=== PATIENT | female | born 1985 | race Caucasian/White ===

== ENCOUNTER 2023-07-27 18:55 | Emergency (ER) | payer OTHER, SELFPAY ==
[2023-07-27 18:59] VITALS: BP 148/100
--- NOTE | 2023-07-27 19:44 | ED.GENMED ---
History of Present Illness
General
Chief Complaint: Abdominal Pain
Source: patient
Exam Limitations: none
Time Seen by Provider: 07/27/23 19:28
Travel History
Have you had any contact with someone who has COVID-19?: No
Do you have any symptoms of coronavirus? Fever > 100 degrees, chills, cough, shortness of breath, sore throat, loss of taste or smell, muscle aches, or headache?: No
History of Present Illness
History of Present Illness:
This is a 38 year old female that comes in with c/o feeling sick. States that her whole abd hurts and she was lightheaded today. States that she had her period last week and today she started to have some spotting and an odor and she found a Tampon
that was still in. States that she took this out. States that she felt nauseated, fatigued and lightheaded. States that her abd felt bloated and she had upper abd discomfort. States that she has been hot and cold, nauseated, had diarrhea which is
normal for her. Denies any fever, vomiting, headache, urinary burning.
Past History
Past History
ED Past Medical History: Asthma, Psychiatric (Anxiety, Depression) and Other (Lumbar disc disease, IBS< Eczema, )
ED Past Surgical History: (X 2), Gynecological (Circlage, Myomectomy) and Orthopedic (Laminectomy)
Social History
Tobacco: Smoker
Alcohol: Occasional
Personal: Other (Seperated)
Living: with family
Employment: Employed
Family History
Family History: Other (Noncontributory)
Review of Systems
Review of Systems
All Other Systems: ROS reviewed and negative except as documented in HPI and ROS
Constitutional: Reports other ([place] hot and cold)
EENT: Reports no symptoms
Respiratory: Denies cough or trouble breathing
Cardiac: Reports chest pain
ABD/GI: Reports abdominal pain, nausea and diarrhea; Denies vomiting
: Reports other (Found tampon that was left in from last week)
Musculoskeletal: Reports no symptoms
Skin: Reports no symptoms
Neurological: Reports other (lightheaded); Denies dizzy or headache
Psychiatric: Reports no symptoms
Phy Exam
General Physical Exam
General Presentation: no apparent distress
General age: appears stated age
General Skin: warm and dry
General Habitus: normal
General Mental: alert and anxious
General Hydration: appears well hydrated
ENT Exam
ENT Exam: TM's normal, pharynx normal and neck supple
Eye Exam
Eye Exam: EOMI
Cardiovascular Exam
Cardiovascular Exam: regular rate/rhythm, no edema, no murmur and normal peripheral pulses
Pulmonary Exam
Pulmonary Exam: lungs clear, no respiratory distress, no rales, chest non tender, no crackles, no rhonchi, no wheezing and no cough
Gastrointestinal Exam
Gastrointestinal Exam: normal bowel sounds, soft, no organomegaly, no pulsatile mass, non distended and tender (Upper abd tenderness with palpation)
Musculoskeletal Exam
Musculoskeletal Exam: full ROM and no edema
Skin Exam
Skin Exam: normal color, warm/dry, no rash and no petechia
Psychiatric Exam
Psychiatric Exam: normal mood/affect
Course
Orders/Labs/Results
Orders:
Orders
07/27/23 19:43
Electrocardiogram (*1) Urgent
Reason for Study: Chest Pain
CT Abd/pel W Iv And Oral Contr Urgent
Comment:
Reason For Exam: Generalized upper abd discomfort.
EKG- Treatment ONCE
0.9% Sodium Chloride 1000 ml [Nss] 1,000 ml IV BOLUS
Iohexol [Omnipaque] See Protocol PO NOW STA
Pantoprazole [Protonix IV] 40 mg IV NOW STA
07/27/23 19:53
Ketorolac [Toradol] 30 mg IV NOW STA
07/27/23 20:12
Complete Blood Count/With Diff Urgent
Comprehensive Metabolic Panel Urgent
HCG, Serum Qualitative Screen Urgent
Comment: ADD ON
Lactate Level [Lactic Acid] Urgent
Troponin I Urgent
Urinalysis Reflex To Culture Urgent
Date Specimen was Collected: 07/27/23
Time Specimen was Collected: 19:55
07/27/23 20:28
Add On- LAB Urgent
Tests Added?: hcg qualitative
07/27/23 21:39
Acetaminophen [Tylenol] 1,000 mg PO NOW STA
Abnormal Lab Results
07/27/23
20:12
RBC 3.99 L 10^6/uL
(4.20-5.40)
Hct 35.8 L %
(37.0-47.0)
MCH 32.3 H pg
(27.0-31.0)
MPV 10.5 H fL
(7.4-10.4)
Glucose 116 H mg/dl
(70-99)
07/27/23 20:12
07/27/23 20:12
Vital Signs
Initial and Last Documented VS:
Initial Vital Signs
Temp Pulse Resp BP Pulse Ox
99.8 F 70 22 148/100 100
07/27/23 18:59 07/27/23 18:59 07/27/23 18:59 07/27/23 18:59 07/27/23 18:59
Last Documented Vital Signs
Temp Pulse Resp BP Pulse Ox
97.8 F 59 18 129/84 98
07/27/23 23:05 07/27/23 23:05 07/27/23 23:05 07/27/23 23:05 07/27/23 23:05
MDM/Problems Addressed
Differential Diagnosis Includes:
Gastritis, Colitis,
MDM/Problems Addressed:
This is a 38 year old female that comes in with c/o just not feeling good. States that she found a tampon that she had left in from last week. States that her whole abd hurts and that she has been hot and cold, nausea, fatigue, lightheaded.
Will get labs, CT abd, IV fluids and pain medication.
Back into see patient. Explained that her blood work is normal along with her Urine. However, the CT shows that she has a retained Tampon. Pelvic exam done and Tampon removed. Will place patient on Doxycycline and discharge home. Patient to follow
up with the PCP and her REFLESHER. Return with fever or any other concerns.
Chronic conditions affecting care:
Colitis, IBS
Acute Exacerbation and/or Progression of Chronic Illness:
Colitis, IBS
*Radiology
Radiology exam reviewed: radiology read reviewed (CT night hawk- No acute findings. No bowel obstruction or inflammation. Normal appendix. Unremarkable gallbladder, pancreas, and kidneys. Normal-sized ovaries. Trace pelvic free fluid, likely
physiologic. No free air or abscess. Tampon within the vagina. Hepatomegaly measuring 19.8cm cranial-caudal ) and other (CT cont- Small umbilical hernia containing fat. )
*Pulse Oximetry
Patient hypoxic: no
*EKG
Interpreted by ED Provider?: Yes
Heart Rate: 52
Rate: bradycardiac
Rhythm: sinus and PAC's
[place]: normal axis
Interval: normal interval
QRS Pattern: normal QRS
Ischemia: no ischemia
*Healthcare Network Consultant Interpretation
Rate: Healthcare Network Consultant- N/A
*Critical Care Note
Total Time (30-74mins, 75-104mins- exclusive of procedures): Not Applicable
ED Attending Note
-
Portions of this chart may have been created with voice recognition software.� Occasional wrong word or��sound alike� substitutions may have occurred due to the inherent limitations of voice recognition software.
Discharge Plan
Departure
Patient Disposition: Home (Routine Discharge)
Date of Disposition: 07/27/23
Time of Disposition: 23:30
Patient with high blood pressure during this ER visit?: No
Condition: Good
Covid-19: Not Applicable
Discharge Problem:
Abdominal pain
Instructions: Abdominal Pain
Prescriptions:
New
doxycycline hyclate 100 mg capsule
100 mg PO BID Qty: 13 0RF
No Action
[id number] fum-folic 1 EACH tablet
1 ea PO DAILY
acetaminophen 325 MG tablet
650 mg PO Q4HPRN PRN (Reason: mild pain) 0RF
ibuprofen 600 MG tablet
600 mg PO Q4HPRN PRN (Reason: cramps) 0RF
hydromorphone 2 MG tablet
2 mg PO Q3HPRN PRN (Reason: SEVERE PAIN) 0RF
Referrals:
Carmenza Alfonso CRNP [Family Provider] - Call in 1-3 days for appt
Activity Restrictions/Additional Instructions:
As discussed, your blood work is normal. Your urine is negative for infection. Your CT shows that you still had a retained tampon. This has been removed. You have been given your first dose of antibiotic here and a prescription has been sent to your
Pharmacy. Please follow up with the REFLESHER and or your family doctor. IF YOU HAVE ANY FEVER, OTHER CONCERNS PLEASE RETURN TO THE EMERGENCY ROOM.
Interventions
Interventions:
*Risk Screen - Suicide Last Done: 07/27/23 18:59
*General Assessment Last Done: 07/27/23 19:57
*Neglect/Abuse Screening Last Done: 07/27/23 18:59
ED- Fall Risk Assessment Last Done: 07/27/23 21:51
*ED COVID-19 Vaccine History Last Done: 07/27/23 19:57
[id number]-[id number] Assessment Last Done: 07/27/23 21:51
Discharge Date and Time
Print Language: COLOMBIAN
[2023-07-27 19:57] VITALS: BMI 26.8
[2023-07-27] MEDS: TORADOL 30 MG IV (20:10)
[2023-07-27] MEDS: OMNIPAQUE 50 ML PO (20:10)
[2023-07-27] MEDS: PROTONIX IV 40 MG IV (20:10)
[2023-07-27] MEDS: NSS 1000 IV (20:11)
[2023-07-27 20:31] LABS: % Basophils 1.1 % (0-2); % Eosinophils 0.8 % (0-6); % Immature Granulocytes 0.2 % (0-0.5); % Lymphocytes 26.6 % (20.5-51.1); % Monocytes 5.6 % (1.7-9.3); % Neutrophils 65.7 % (42.2-75.2); Absolute Basophils 0.1 10^3/uL (0-0.2); Absolute Eosinophils 0.1 10^3/uL (0-0.7); Absolute Lymphocytes 1.6 10^3/uL (1.2-3.4); Absolute Monocytes 0.3 10^3/uL (0.1-0.6); Hematocrit 35.8 % (37.0-47.0); Hemoglobin 12.9 g/dL (12.0-16.0); Mean Corpuscular Hgb 32.3 pg (27.0-31.0); Mean Corpuscular Volume 89.7 fL (81.0-99.0); Mean Platelet Volume 10.5 fL (7.4-10.4); Nucleated Red Blood Cells % 0 %; Platelet Count 275 10^3/uL (130-400); Red Blood Cell Count 3.99 10^6/uL (4.20-5.40); Red Cell Dist. Width 13.2 % (11.5-14.5); White Blood Cell Count 6.1 10^3/uL (4.8-10.8)
[2023-07-27 20:47] LABS: HCG, Serum Qualitative Screen Negative
[2023-07-27 20:49] LABS: Urine Albumin Negative (Neg - Trace); Urine Bilirubin Negative (Negative); Urine Character Clear (Clear); Urine Color Yellow; Urine Glucose Negative (Negative); Urine Ketone Negative (Negative); Urine Leukocyte Negative (Negative); Urine Nitrite Negative (Negative); Urine Occult Blood Negative (Negative); Urine Urobilinogen Negative (Neg - 1+)
[2023-07-27 20:50] LABS: ALT (SGPT) 20 U/L (0-35); AST (SGOT) 26 U/L (14-36); Albumin 4.4 g/dl (3.5-5.0); Alkaline Phosphatase 46 U/L (38-126); Blood Urea Nitrogen 7 mg/dl (7-17); Calcium 9.2 mg/dl (8.4-10.2); Carbon Dioxide 27 mmol/L (22-30); Chloride 104 mmol/L (98-107); Estimated Creatinine Clearance 105 ml/min; Glucose 116 mg/dl (70-99); Potassium 4.2 mmol/L (3.5-5.1); Sodium 137 mmol/L (135-145); Total Bilirubin 0.4 mg/dl (0.2-1.3); Total Protein 6.9 g/dl (6.3-8.2); eGFR > 60.00
[2023-07-27 20:57] LABS: Troponin I < 0.012 ng/ml
[2023-07-27 21:00] VITALS: BP 153/102
[2023-07-27] MEDS: TYLENOL 1000 MG PO (21:54)
[2023-07-27 22:00] VITALS: BP 157/102
[2023-07-27 23:05] VITALS: BP 129/84
[2023-07-27] MEDS: VIBRAMYCIN 100 MG PO (23:33)
== END 2023-07-27 23:38 | disposition home or self-care (01) ==
LOC: EMR 18:55
PROVIDERS: Clinical Nurse Specialist Family Health; EMERGENCY PHYSICIAN Emergency Medicine; FAMILY PHYSICIAN Nurse Practitioner
DX: R42 Dizziness and giddiness (principal); J45.909 Unspecified asthma, uncomplicated; F41.8 Other specified anxiety disorders; F17.200 Nicotine dependence, unspecified, uncomplicated; K58.9 Irritable bowel syndrome, unspecified
CPT/HCPCS: 99284; 96374; 96375; 96361; 74177; 80053; 81003; 83605; 84484; 84703; 85025; 93005; Q9967